=== PATIENT | female | born 1985 | race Caucasian/White ===

== ENCOUNTER 2020-08-29 19:59 | Day surgery (SDC) | payer BC, OTHER ==
[2020-08-29 20:01] VITALS: BP 129/79
--- NOTE | 2020-08-29 20:07 | NUR ---
pt changing into gown at this time
--- NOTE | 2020-08-29 20:17 | NUR ---
report given to julian from [facility]. they want covid test, h/h and type and screen drawn before transfer, erp updated
[2020-08-29] MEDS ORDERED: SODIUM CHLORIDE 0.9% 1,000 ML IV ONE ×2 (20:30→21:00)
[2020-08-29] MEDS ORDERED: SODIUM CHLORIDE FLUSH 10ML SYR IVF ONE (20:30)
--- NOTE | 2020-08-29 20:36 | NUR ---
dr. goodwin at bedside
[2020-08-29] MEDS ORDERED: EPINEPHRINE 1 MG/ML, 1ML ONE (20:45)
[2020-08-29] MEDS ORDERED: BUPIVACAINE/PF 0.25% ONE (20:45)
[2020-08-29] MEDS ORDERED: FENTANYL PF 100 MCG/2ML ONE ×2 (20:56→21:59)
[2020-08-29] MEDS ORDERED: MIDAZOLAM 1 MG/ML, 2ML ONE (20:56)
[2020-08-29] MEDS ORDERED: SUGAMMADEX 200 MG/2 ML IVPush ONE (20:57)
[2020-08-29] MEDS ORDERED: MORPHINE SULFATE 4 MG/ML, 1ML IVPush PRN (21:00)
[2020-08-29] MEDS ORDERED: ONDANSETRON 2MG/ML, 2ML IVPush ONE (21:00)
[2020-08-29] MEDS ORDERED: SODIUM CHLORIDE FLUSH 10ML SYR IVF PRN (21:00)
[2020-08-29] MEDS ORDERED: ONDANSETRON 2MG/ML, 2ML ONE (21:28)
[2020-08-29] MEDS ORDERED: ROCURONIUM 10MG/ML,5ML ONE (21:28)
[2020-08-29] MEDS ORDERED: PROPOFOL 10 MG/ML, 20ML ONE (21:28)
[2020-08-29] MEDS ORDERED: CEFAZOLIN 1,000 MG ONE ×2 (21:28)
[2020-08-29] MEDS ORDERED: DEXAMETHASONE 4 MG/ML, 1ML ONE (21:28)
[2020-08-29] MEDS ORDERED: SILVER NITRATE STICK TP ONE (21:49)
[2020-08-29] MEDS ORDERED: PROMETHAZINE 25 MG/ML, 1ML IVPush PRN (22:00)
[2020-08-29] MEDS ORDERED: OXYcodone 5 MG/5 ML ORAL.SOL UDC PO PRN (22:00)
[2020-08-29] MEDS ORDERED: OXYcodone 5 MG/5 ML ORAL.SOL UDC ONE (22:00)
[2020-08-29] MEDS ORDERED: DIAZEPAM 5 MG/ML, 2ML IVPush PRN (22:00)
[2020-08-29] MEDS ORDERED: KETOROLAC 30 MG/1 ML IVPush PRN (22:00)
[2020-08-29] MEDS ORDERED: HYDROmorphone 1 MG/ML, 1ML INJ IVPush PRN (22:00)
[2020-08-29] MEDS ORDERED: ONDANSETRON 2MG/ML, 2ML IVPush PRN (22:00)
[2020-08-29] MEDS ORDERED: DIPHENHYDRAMINE 50 MG/ML, 1ML IVPush PRN (22:00)
[2020-08-29] MEDS: FENTANYL PF 100 MCG/2ML IV PRN ×2 (22:00→22:05)
[2020-08-29] MEDS ORDERED: ACETAMINOPHEN 325 MG TABLET PO PRN (22:00)
[2020-08-29] MEDS ORDERED: MEPERIDINE/PF 25MG/0.5ML IVPush PRN (22:00)
[2020-08-29] MEDS ORDERED: MEPERIDINE/PF 25MG/ML,1ML ONE (22:20)
[2020-08-29] MEDS ORDERED: OXYC1TAB14 PO (22:35)
[2020-08-29] MEDS ORDERED: DOCU-131 PO (22:36)
[2020-08-29] MEDS ORDERED: IBUP-1222 PO (22:36)
== END 2020-08-29 23:05 | disposition home or self-care (01) ==
LOC: OUT 20:47 → ED 20:47 → EDIP 20:59 → UNDOADMIN 20:59 → OUT 23:05 → ED 23:05
PROVIDERS: ATTEND Emergency Medicine
DX: O00.102 Left tubal pregnancy without intrauterine pregnancy (principal); Z20.822 Contact with and (suspected) exposure to COVID-19; Z79.3 Long term (current) use of hormonal contraceptives; Z79.899 Other long term (current) drug therapy; Z88.2 Allergy status to sulfonamides
CPT/HCPCS: 36415; 59151; 85014; 85018; 86850; 86900; 87635; 88305; 96361; 96374; 96375; 99285; J0171; J0690; J1100; J2175; J2250; J2405; J2704; J3010; J7030